=== PATIENT | female | born 1965 | race African-American/Black ===

== ENCOUNTER 2016-10-22 13:22 | Inpatient (IN) | payer OTHER ==
[~2016-10-22] VITALS: Ht 157.5 cm; Wt 50.0 kg
[2016-10-22] VITALS (11 sets, daily range): BP systolic 154–188; BP diastolic 56–91; PULSE 80–100; RESP 16–22; TEMP 98–98.9; O2SAT 98–100
[~2016-10-22 13:22] MED LIST: DIAZ5 PO; NOVO7030P2 SQ; PRIN10TA PO
[2016-10-22] MEDS ORDERED: ASPIRIN 325 MG TAB PO ONE (13:45)
[2016-10-22] MEDS ORDERED: SODIUM CHLORIDE 0.9% FLUSH 10 ML FLUSH IVF PRN (13:45)
--- NOTE | 2016-10-22 13:52 | PD ---
HPI Chief Complaint: Pain: Acute or Chronic Time Seen by Provider: 13:33 Travel History International Travel<30 days: No Contact w/Intl Traveler<30days: No Traveled to known affect area: No History of Present Illness HPI 51yo F with PMH of DM, HTN here with c/o midsternal chest pain since last night. States she has intermittent, sharp chest pain that is worst with deep breathing. Associated with nausea and nonbloody, nonbilious vomiting. Denies any fever, cough, sob, n/v, abdominal pain, focal weakness or numbness. Pt states she had similar chest pain before a few years ago but does not know what was done. Denies having any pet stylist. As per our record, pt had positive stress test 07/02/2009. Pt is noncompliant with medications for her diabetes. PFSH Past Medical History Cardiovascular Problems: Yes High Cholesterol: Yes Diabetes: Yes Patient Takes Glucophage: No Hypertension: Yes Thyroid Disease: Yes Tetanus Vaccination: < 5 Years ?: Not Past Surgical History Section: Yes Other Surgery: Yes (thyroid) Social History Alcohol Use: No Tobacco Use: No Substance Use: No Allergies-Medications (Allergen,Severity, Reaction): Coded Allergies: No Known Allergies (Verified , 10/22/16) Reported Meds & Prescriptions Reported Meds & Active Scripts Active No Active Prescriptions or Reported Medications Review of Systems Except as stated in HPI: all other systems reviewed are Neg Physical Exam Narrative GENERAL: 51yo F in moderate distress. SKIN: Focused skin assessment warm/dry. HEAD: Atraumatic. Normocephalic. CARDIOVASCULAR: Regular rate and rhythm. No murmur appreciated. RESPIRATORY: No accessory muscle use. Clear to auscultation. Breath sounds equal bilaterally. GASTROINTESTINAL: Abdomen soft, non-tender, nondistended. No rebound tenderness or guarding. MUSCULOSKELETAL: No obvious deformities. No clubbing. No cyanosis. No edema. NEUROLOGICAL: Awake and alert. No obvious cranial nerve deficits. Motor grossly within normal limits. Normal speech. Data Data Last Documented VS Vital Signs Date Time Temp Pulse Resp B/P (MAP) Pulse Ox O2 Delivery O2 Flow Rate FiO2 10/22/16 17:07 86 20 154/56 (88) 98 Room Air 10/22/16 13:45 98.9 Orders Orders Electrocardiogram (10/22/16 ) Basic Metabolic Panel (Bmp) (10/22/16 13:44) Complete Blood Count With Diff (10/22/16 13:44) Magnesium (Mg) (10/22/16 13:44) Prothrombin Time / Inr (Pt) (10/22/16 13:44) Act Partial Throm Time (Ptt) (10/22/16 13:44) Troponin I (10/22/16 13:44) Chest, Single Ap (10/22/16 13:44) Ecg Monitoring (10/22/16 13:44) Bilateral Bp Monitoring (10/22/16 13:44) Iv Access Insert/Monitor (10/22/16 13:44) Oximetry (10/22/16 13:44) Oxygen Administration (10/22/16 13:44) Aspirin (Aspirin) (10/22/16 13:45) Sodium Chloride 0.9% Flush (Ns Flush) (10/22/16 13:45) Ct Pulmonary Angiogram (10/22/16 13:44) Bhcg Screen Qualitative (10/22/16 13:47) Metoclopramide Inj (Reglan Inj) (10/22/16 14:00) Nitroglycerin Sl (Nitrostat Sl) (10/22/16 14:00) Iohexol 350 Inj (Omnipaque 350 Inj) (10/22/16 15:11) Morphine Inj (Morphine Inj) (10/22/16 19:15) Activity Bed Rest With Brp (10/22/16 19:01) Vital Signs (Adult) Q4H (10/22/16 19:) Cardiac Rhythm .As Directed (10/22/16 19:) Notify Dr: Other .PRN (10/22/16 19:) Notify DrRobert Parameters (10/22/16 19:) Resp Oxygen Nasal Cannula (10/22/16 ) Ckmb (Isoenzyme) Profile (10/22/16 19:) Ckmb (Isoenzyme) Profile (10/22/16 22:) Troponin I (10/22/16 19:) Troponin I (10/22/16 22:01) Electrocardiogram (10/22/16:) Electrocardiogram (10/22/16 22:01) ^ Obtain (10/22/16:) Sodium Chloride 0.9% Flush (Ns Flush) (10/22/16 19:15) Sodium Chloride 0.9% Flush (Ns Flush) (10/22/16 21:00) Wildlife Veterinarian / Telemetry CAMELIA.Q8H (10/22/16 19:01) Labs Laboratory Tests Test 10/22/16 13:50 White Blood Count 9.6 TH/MM3 Red Blood Count 4.25 MIL/MM3 Hemoglobin 7.9 GM/DL Hematocrit 27.4 % Mean Corpuscular Volume 64.4 FL Mean Corpuscular Hemoglobin 18.7 PG Mean Corpuscular Hemoglobin Concent 29.0 % Red Cell Distribution Width 19.0 % Platelet Count 348 TH/MM3 Mean Platelet Volume 10.0 FL Neutrophils (%) (Auto) 65.7 % Lymphocytes (%) (Auto) 26.7 % Monocytes (%) (Auto) 5.1 % Eosinophils (%) (Auto) 1.2 % Basophils (%) (Auto) 1.3 % Neutrophils # (Auto) 6.3 TH/MM3 Lymphocytes # (Auto) 2.6 TH/MM3 Monocytes # (Auto) 0.5 TH/MM3 Eosinophils # (Auto) 0.1 TH/MM3 Basophils # (Auto) 0.1 TH/MM3 CBC Comment DIFF FINAL Differential Comment Prothrombin Time 10.2 SEC Prothromb Time International Ratio 0.9 RATIO Activated Partial Thromboplast Time 23.5 SEC Blood Urea Nitrogen 26 MG/DL Creatinine 1.45 MG/DL Random Glucose 195 MG/DL Calcium Level 9.4 MG/DL Magnesium Level 2.2 MG/DL Sodium Level 139 MEQ/L Potassium Level 4.5 MEQ/L Chloride Level 105 MEQ/L Carbon Dioxide Level 24.9 MEQ/L Anion Gap 9 MEQ/L Estimat Glomerular Filtration Rate 46 ML/MIN Troponin I LESS THAN 0.02 NG/ML Beta HCG, Qualitative LESS THAN 1 MIU/ML MDM Medical Decision Making Medical Screen Exam Complete: Yes Emergency Medical Condition: Yes Interpretation(s) EKG: Sinus tachycardia at 111bpm. Normal axis. TWI V5, V6. Poor baseline. Differential Diagnosis ACS vs. pericarditis vs. PE vs. pneumonia Narrative Course 51yo F with HTN and DM with atypical midsternal chest pain. Chest pain is more pleuritic. CT angio unremarkable. CXR negative. Labs reviewed, no leukocytosis. H/H is low at 7.9/27.4 but may be secondary to menstrual bleed. Pt states she is currently at the end of her menstrual period. She also denies any blood in stool or black stool. Troponin negative. BUN/creatinine mildly elevated but last blood work was in 2008. Troponin negative. Glucose mildly elevated at 195. negative. Pt has risks factors even though chest pain is atypical. She had positive stress test in 2009 but never followed up or had any other studies. Pt given sublingual nitro and aspirin which didnt alleviate chest pain so morphine given. States morphine is the only thing that helps. Pt has no pet stylist. Will admit to chest pain center for serial EKG and cardiac enzymes. Diagnosis Primary Impression: Chest pain Admitting Information Admitting Physician Requests: Observation Scripts No Active Prescriptions or Reported Meds Skye Giron DO Oct 22, 2016 13:52
[2016-10-22] MEDS: NITROGLYCERIN 0.4 MG SL 25 TABS/BTL SL PRN ×3 (14:00→22:40)
[2016-10-22] MEDS ORDERED: METOCLOPRAMIDE INJ 10 MG in SODIUM CHLORIDE 0.9% INJ 50 ML IV ONE (14:00)
--- NOTE | 2016-10-22 14:07 | RADRPT ---
EXAM DATE/TIME: 10/22/2016 14:00 [facility] COMPARISON: No previous studies available for comparison. INDICATIONS : Chest pain. MEDICAL HISTORY : Hypertension. Hypercholesterolemia. Diabetes. SURGICAL HISTORY : None. ENCOUNTER: Initial ACUITY: 1 day PAIN SCORE: 10/10 LOCATION: Bilateral chest FINDINGS: A single view of the chest demonstrates the lungs to be symmetrically aerated without evidence of mas s, infiltrate or effusion. The cardiomediastinal contours are unremarkable. Osseous structures are intact. CONCLUSION: No acute disease. Phillip Richard MD on October 22, 2016 at 14:05 Board Certified Radiologist. This report was verified electronically.
[2016-10-22 14:11] LABS: AUTOMATED NEUTROPHIL # 6.3 TH/MM3 (1.8-7.7); BASOPHIL # 0.1 TH/MM3 (0-0.2); BASOPHIL % 1.3 % (0.0-2.0); EOSINOPHIL # 0.1 TH/MM3 (0-0.4); EOSINOPHIL % 1.2 % (0.0-4.0); HEMATOCRIT 27.4 % (35.0-46.0); HEMO FLAGS DIFF FINAL; LYMPH % 26.7 % (9.0-44.0); LYMPHOCYTE # 2.6 TH/MM3 (1.0-4.8); MEAN CELL VOLUME 64.4 FL (80.0-100.0); MEAN CORPUSCULAR HEMOGLOBIN 18.7 PG (27.0-34.0); MONO % 5.1 % (0.0-8.0); NEUT % 65.7 % (16.0-70.0); PLATELET COUNT 348 TH/MM3 (150-450); RED BLOOD COUNT 4.25 MIL/MM3 (4.00-5.30); WHITE BLOOD COUNT 9.6 TH/MM3 (4.0-11.0)
[2016-10-22 14:23] LABS: APTT (PATIENT) 23.5 SEC (24.3-30.1); INTERNATIONAL NORMALIZED RATIO 0.9 RATIO; PROTHROMBIN TIME - PATIENT 10.2 SEC (9.8-11.6)
[2016-10-22 14:28] LABS: ANION GAP 9 MEQ/L (5-15); BICARBONATE 24.9 MEQ/L (21.0-32.0); BLOOD UREA NITROGEN 26 MG/DL (7-18); CHLORIDE 105 MEQ/L (98-107); GLOMERULAR FILTRATION RATE 46 ML/MIN (>89); MAGNESIUM 2.2 MG/DL (1.5-2.5); POTASSIUM 4.5 MEQ/L (3.5-5.1); SODIUM (NA) 139 MEQ/L (136-145)
[2016-10-22] MEDS ORDERED: IOHEXOL 350 MG/ML 10 ML VIAL (for RAD DIAG) IV ONE (15:11)
--- NOTE | 2016-10-22 15:28 | RADRPT ---
EXAM DATE/TIME: 10/22/2016 15:00 [facility] COMPARISON: No previous studies available for comparison. INDICATIONS : Nausea, vomiting, chest pain today. IV CONTRAST: 60 cc Omnipaque 350 (iohexol) IV RADIATION DOSE: 23.18 CTDIvol (mGy) MEDICAL HISTORY : Cardiovascular disease. Hypertension. Diabetes mellitus type 1. SURGICAL HISTORY : None. ENCOUNTER: Initial ACUITY: 1 day PAIN SCALE: 5/10 LOCATION: chest TECHNIQUE: Volumetric scanning of the chest was performed using a pulmonary embolism protocol MIP images were re constructed. Using automated exposure control and adjustment of the mA and/or kV according to patien t size, radiation dose was kept as low as reasonably achievable to obtain optimal diagnostic quality images. DICOM format image data is available electronically for review and comparison. Follow-up recommendations for detected pulmonary nodules are based at a minimum on nodule size and pa tient risk factors according to Fleischner Society Guidelines. FINDINGS: The lungs are clear without infiltrate, nodule, or mass. There is no pleural effusion. No appreciab le pathological adenopathy is seen within the mediastinum. There is no evidence for PE for technique. CONCLUSION: Unremarkable study. James Tbaor MD on October 22, 2016 at 15:24 Board Certified Radiologist. This report was verified electronically.
[2016-10-22] MEDS ORDERED: MORPHINE SULFATE 4 MG/ML INJ IV PUSH ONE (19:15)
[2016-10-22] MEDS ORDERED: SODIUM CHLORIDE 0.9% FLUSH 10 ML FLUSH IV FLUSH PRN (19:15)
[2016-10-22] MEDS: SODIUM CHLORIDE 0.9% FLUSH 10 ML FLUSH IV FLUSH SCH (20:16)
[2016-10-22 20:24] LABS: CREATINE KINASE 97 U/L (26-192)
[2016-10-22] MEDS ORDERED: LISINOPRIL 10 MG TAB PO ONE (23:45)
[2016-10-23] VITALS (11 sets, daily range): BP systolic 103–185; BP diastolic 61–91; PULSE 60–99; RESP 17–20; TEMP 97.9–99; O2SAT 95–99
[2016-10-23 00:14] LABS: CREATINE KINASE 87 U/L (26-192)
[2016-10-23] MEDS ORDERED: ACETAMINOPHEN 500 MG CPLT PO PRN (00:15)
[2016-10-23] MEDS ORDERED: DEXTROSE 50% IN WATER 50 ML VIAL(D50) IV PUSH PRN (00:15)
[2016-10-23] MEDS ORDERED: TEMAZEPAM 15 MG CAP PO PRN (00:15)
[2016-10-23] MEDS ORDERED: ACETAMINOPHEN/HYDROcodone 325 MG/5 MG TAB PO PRN (00:15)
[2016-10-23] MEDS ORDERED: GLUCAGON 1 MG/ML VIAL OTHER PRN ×2 (00:15→15:30)
[2016-10-23] MEDS: LOW DOSE INSULIN NOVOLOG SUPPLEMENTAL SCALE SQ SCH ×2 (06:24→11:00)
[2016-10-23] MEDS: LISINOPRIL 10 MG TAB PO SCH (08:02)
[2016-10-23] MEDS: SODIUM CHLORIDE 0.9% FLUSH 10 ML FLUSH IV FLUSH SCH ×2 (09:00→20:18)
[2016-10-23] MEDS ORDERED: ONDANSETRON HCL 4 MG/2 ML VIAL ONE (11:01)
[2016-10-23 11:06] LABS: AUTOMATED NEUTROPHIL # 10.4 TH/MM3 (1.8-7.7); BASOPHIL # 0.1 TH/MM3 (0-0.2); BASOPHIL % 0.5 % (0.0-2.0); HEMATOCRIT 27.4 % (35.0-46.0); HEMO FLAGS DIFF FINAL; LYMPH % 8.5 % (9.0-44.0); MEAN CORPUSCULAR HEMOGLOBIN 18.6 PG (27.0-34.0); MONO % 3.6 % (0.0-8.0); NEUT % 87.4 % (16.0-70.0); PLATELET COUNT 313 TH/MM3 (150-450); RED BLOOD COUNT 4.28 MIL/MM3 (4.00-5.30); RED CELL DISTRIBUTION WIDTH 18.9 % (11.6-17.2); WHITE BLOOD COUNT 11.9 TH/MM3 (4.0-11.0)
[2016-10-23 11:22] LABS: ALT (GPT) 18 U/L (10-53); ANION GAP 10 MEQ/L (5-15); AST (GOT) 16 U/L (15-37); BICARBONATE 26.1 MEQ/L (21.0-32.0); BLOOD UREA NITROGEN 21 MG/DL (7-18); CHLORIDE 102 MEQ/L (98-107); GLOMERULAR FILTRATION RATE 50 ML/MIN (>89); POTASSIUM 3.5 MEQ/L (3.5-5.1); SODIUM (NA) 138 MEQ/L (136-145)
[2016-10-23 11:30] LABS: ALKALINE PHOSPHATASE 75 U/L (45-117); TOTAL BILIRUBIN ADULT 0.3 MG/DL (0.2-1.0)
[2016-10-23] MEDS ORDERED: PROMETHAZINE INJ 25 MG/ML VIAL IM ONE (12:00)
[2016-10-23] MEDS ORDERED: SODIUM CHLOR 0.9% 1000 ML INJ 1,000 ML IV ONE (12:00)
[2016-10-23] MEDS ORDERED: PHENobarbital ELIX 20 MG/5 ML CUP ONE (12:47)
--- NOTE | 2016-10-23 13:30 | RADRPT ---
EXAM DATE/TIME: 10/23/2016 10:56 [facility] COMPARISON: No previous studies available for comparison. INDICATIONS : Right upper quadrant pain. MEDICAL HISTORY : Hypercholesterolemia. Hypertension. Thyroid disease. Diabetes. Anemia. SURGICAL HISTORY : section. Thyroid surgery, unspecified. ENCOUNTER: Initial ACUITY: 2 days PAIN SCORE: 9/10 LOCATION: Right upper quadrant MEASUREMENTS: LIVER: 14.3 cm length COMMON DUCT: 2 mm RIGHT KIDNEY: 8.8 x 4.5 x 3.8 cm FINDINGS: LIVER: Normal echotexture without focal lesion or ductal dilatation. Hepatopedal flow. COMMON DUCT: No intraluminal mass or stone visualized. GALLBLADDER: Contains no stones, demonstrates no wall thickening or pericholecystic fluid. PANCREAS: The visualized portions are within normal limits. RIGHT KIDNEY: No evidence of hydronephrosis, stone, or mass. CONCLUSION: 1. Unremarkable right upper quadrant sonogram. 2. No evidence for cholelithiasis. Phillip Richard MD on October 23, 2016 at 11:29 Board Certified Radiologist. This report was verified electronically.
[2016-10-23 14:21] LABS: BLOOD, URINE SMALL (NEG); COMMENT (UR) CULT NOT INDICATED; CULTURE IF INDICATED CULT NOT INDICATED; GLUCOSE,URINE 70 mg/dL (NEG); KETONE, URINE 10 mg/dL (NEG); MUCUS URINE FEW /lpf (OCC); NITRITE,URINE NEG (NEG); SQUAMOUS EPITHELIAL CELL URINE <1 /hpf (0-5); URINE COLOR YELLOW (YELLW/STRAW)
[2016-10-23] MEDS ORDERED: PROMETHAZINE INJ 25 MG/ML VIAL IM PRN (15:00)
--- NOTE | 2016-10-23 15:14 | HHI.HP ---
[facility] Primary [facility] Physician No Primary Care Physician Admission Diagnosis Chest pain Diagnoses: Chief Complaint: nausea and pain Travel History International Travel<30 Days: No Contact w/Intl Traveler <30 Da: No Traveled to Known Affected Are: No History of Present Illness 51-year-old black female being admitted for obs from chest pain center for nausea and epigastric/subcostal pain. Patient was in her usual state of health until 2 days ago when she began experiencing nausea and worsening of her chronic subcostal pain. Patient tolerated this for the next few days until she threw up earlier at work yesterday and decided to come in. She reports pain in her lower chest that is worse with deep breathing. States that this pain has been chronic (for years) and that it routinely goes to a level of "10" but decided to come in because it was present with the nausea today. Patient denies taking any medications for this pain or nausea during this episode, states that she is a diabetic and has not taken any medications for a long time , has not seen a doctor since she moved to the area, used to live in the [facility] , reports not seeing any medical provider for her chronic low chest pain due to financial issues. Denies any lightheadedness or syncopal episodes. Denies any diarrhea or worsening of the pain with meals. States that she has normal bowel movements on a daily basis and that this has not changed recently. Does report that she does marijuana about 3 times a week, and smoked some marijuana the first day of her nausea 2 days ago to try to treat it - but to no avail. Review of Systems Except as stated in HPI: all other systems reviewed are Neg Past Family Social History Past Medical History Diabetes Past Surgical History C-sections Allergies: Coded Allergies: No Known Allergies (Verified , 10/22/16) Active Ordered Medications Reported Meds & Active Scripts Active No Active Prescriptions or Reported Medications Family History Hypertension Social History Lives with daughter and friend, smokes cigarettes and marijuana, works at [employer] Physical Exam Vital Signs Vital Signs Date Time Temp Pulse Resp B/P (MAP) Pulse Ox O2 Delivery O2 Flow Rate FiO2 10/23/16 14:24 97.9 68 18 112/62 (79) 96 10/23/16 08:00 96 10/23/16 07:52 98 21 10/23/16 07:49 98.2 86 18 152/91 (111) 97 10/23/16 04:00 97.9 89 17 103/61 (75) 99 10/22/16 23:48 98.2 80 16 170/77 (108) 99 10/22/16 23:00 80 10/22/16 21:05 98.0 81 16 182/84 (116) 100 10/22/16 21:00 100 21 10/22/16 19:58 98.1 91 16 175/83 (113) 98 Room Air 10/22/16 17:07 86 20 154/56 (88) 98 Room Air Physical Exam VS: Reviewed, afebrile GENERAL: No acute distress when lying in bed, becomes very distressed with deep palpation over epigastrium and actually vomits almost instantaneously SKIN: Warm and dry. EYES: No scleral icterus. No injection or drainage. ENT: No nasal bleeding or discharge. Mucous membranes pink and moist. CARDIOVASCULAR: Regular rate and rhythm. no murmurs RESPIRATORY: No accessory muscle use. Clear to auscultation. Breath sounds equal bilaterally. GASTROINTESTINAL: Abdomen soft, moderate tenderness to palpation in epigastrium and left upper quadrant MUSCULOSKELETAL: Moderate tenderness to palpation over lower aspect of sternum and left subcostal region. Extremities without clubbing, cyanosis, or edema. No obvious deformities. grossly intact ROM with 5/5 strength in upper and lower extremities proximally NEUROLOGICAL: Awake and alert. No obvious cranial nerve deficits. No facial droop nor slurred speech noted. PSYCHIATRIC: Appropriate mood and affect; insight and judgment normal. Laboratory Laboratory Tests Test 10/22/16 19:45 10/22/16 23:00 10/23/16 10:40 10/23/16 13:48 Total Creatine Kinase 97 87 Troponin I LESS THAN 0.02 LESS THAN 0.02 White Blood Count 11.9 Red Blood Count 4.28 Hemoglobin 8.0 Hematocrit 27.4 Mean Corpuscular Volume 64.0 Mean Corpuscular Hemoglobin 18.6 Mean Corpuscular Hemoglobin Concent 29.0 Red Cell Distribution Width 18.9 Platelet Count 313 Mean Platelet Volume 10.0 Neutrophils (%) (Auto) 87.4 Lymphocytes (%) (Auto) 8.5 Monocytes (%) (Auto) 3.6 Eosinophils (%) (Auto) 0.0 Basophils (%) (Auto) 0.5 Neutrophils # (Auto) 10.4 Lymphocytes # (Auto) 1.0 Monocytes # (Auto) 0.4 Eosinophils # (Auto) 0.0 Basophils # (Auto) 0.1 CBC Comment DIFF FINAL Differential Comment Blood Urea Nitrogen 21 Creatinine 1.37 Random Glucose 200 Total Protein 8.7 Albumin 4.2 Calcium Level 9.2 Alkaline Phosphatase 75 Aspartate Amino Transf (AST/SGOT) 16 Alanine Aminotransferase (ALT/SGPT) 18 Total Bilirubin 0.3 Sodium Level 138 Potassium Level 3.5 Chloride Level 102 Carbon Dioxide Level 26.1 Anion Gap 10 Estimat Glomerular Filtration Rate 50 Lipase 265 Urine Color YELLOW Urine Turbidity CLEAR Urine pH 6.0 Urine Specific [place] 1.026 Urine Protein 300 Urine Glucose (UA) 70 Urine Ketones 10 Urine Occult Blood SMALL Urine Nitrite NEG Urine Bilirubin NEG Urine Urobilinogen LESS THAN 2.0 Urine Leukocyte Esterase NEG Urine RBC 1 Urine WBC 1 Urine Squamous Epithelial Cells <1 Urine Mucus FEW Microscopic Urinalysis Comment CULT NOT INDICATED Urine Opiates Screen POS Urine Barbiturates Screen NEG Urine Amphetamines Screen NEG Urine Benzodiazepines Screen NEG Urine Cocaine Screen NEG Urine Cannabinoids Screen POS Result Diagram: 10/23/16 1040 10/23/16 1040 Imaging Last Impressions Chest X-Ray 10/22/16 1344 Signed Impressions: Service Date/Time: Saturday, October 22, 2016 14:00 - CONCLUSION: No acute disease. Phillip Richard MD CT Angiography 10/22/16 1344 Signed Impressions: Service Date/Time: Saturday, October 22, 2016 15:00 - CONCLUSION: Unremarkable study. James Tabor MD Caprini VTE Risk Assessment Caprini VTE Risk Assessment: No/Low Risk (score <= 1) Caprini Risk Assessment Model Point Value = 1 Point Value = 2 Point Value = 3 Point Value = 5 Age 41-60 Minor surgery BMI > 25 kg/m2 Swollen legs Varicose veins or History of unexplained or recurrent spontaneous Oral contraceptives or hormone replacement Sepsis (< 1 month) Serious lung disease, including pneumonia (< 1 month) Abnormal pulmonary function Acute myocardial infarction Congestive heart failure (< 1 month) History of inflammatory bowel disease Medical patient at bed rest Age 61-74 Arthroscopic surgery Major open surgery (> 45 min) Laparoscopic surgery (> 45 min) Malignancy Confined to bed (> 72 hours) Immobilizing plaster cast Central venous access Age >= 75 History of VTE Family history of VTE Factor V Leiden Prothrombin [id number] Lupus anticoagulant Anticardiolipin antibodies Elevated serum homocysteine Heparin-induced thrombocytopenia Other congenital or acquired thrombophilia Stroke (< 1 month) Elective arthroplasty Hip, pelvis, or leg fracture Acute spinal cord injury (< 1 month) Prophylaxis Regimen Total Risk Factor Score Risk Level Prophylaxis Regimen 0-1 Low Early ambulation 2 Moderate Order ONE of the following: *Sequential Compression Device (SCD) *Heparin 5000 units SQ BID 3-4 Higher Order ONE of the following medications: *Heparin 5000 units SQ TID *Enoxaparin/Lovenox 40 mg SQ daily (WT < 150 kg, CrCl > 30 mL/min) *Enoxaparin/Lovenox 30 mg SQ daily (WT < 150 kg, CrCl > 10-29 mL/min) *Enoxaparin/Lovenox 30 mg SQ BID (WT < 150 kg, CrCl > 30 mL/min) AND/OR *Sequential Compression Device (SCD) 5 or more Highest Order ONE of the following medications: *Heparin 5000 units SQ TID (Preferred with Epidurals) *Enoxaparin/Lovenox 40 mg SQ daily (WT < 150 kg, CrCl > 30 mL/min) *Enoxaparin/Lovenox 30 mg SQ daily (WT < 150 kg, CrCl > 10-29 mL/min) *Enoxaparin/Lovenox 30 mg SQ BID (WT < 150 kg, CrCl > 30 mL/min) AND *Sequential Compression Device (SCD) Assessment and Plan Assessment and Plan 41-year-old black female being admitted for intractable nausea and vomiting. Clinically stable upon admission. 1) nausea vomiting - suspect that the patient's marijuana is playing a substantial role in this (given the chronicity of her complaints), will treat with IV and IM antiemetics, IV fluids, clear liquids as tolerated. Lipase, UA and CMP are unremarkable. gallbladder US pending but i suspect it will be unremarkable. 2) diabetes - A1c is 7.7, will start LDSS 3) renal insufficiency - suspect that this is an acute on chronic component ( and I argue for chronic due to likely uncontrolled diabetes) Josué Gonzalez MD Oct 23, 2016 15:14
[2016-10-23] MEDS ORDERED: DEXTROSE 50% IN WATER 50 ML VIAL(D50) IV PRN (15:30)
--- NOTE | 2016-10-23 16:28 | EKG ---
Date Performed: 10/22/2016 Time Performed: 23:05:41 PTAGE: 51 years EKG: Sinus rhythm NONSPECIFIC ST & T-WAVE ABNORMALITY BORDERLINE ECG PREVIOUS TRACING : 10/22/2016 19.27 Since previous tracing, no significant change noted DOCTOR: Yunior William Interpretating Date/Time 10/23/2016 16:27:27
--- NOTE | 2016-10-23 16:31 | EKG ---
Date Performed: 10/22/2016 Time Performed: 19:27:26 PTAGE: 51 years EKG: Sinus rhythm ST DEVIATION AND MODERATE T-WAVE ABNORMALITY ABNORMAL ECG PREVIOUS TRACING : 10/22/2016 13.35 Since previous tracing, no significant change noted DOCTOR: Yunior William Interpretating Date/Time 10/23/2016 16:30:19
--- NOTE | 2016-10-23 16:34 | EKG ---
Date Performed: 10/22/2016 Time Performed: 13:35:43 PTAGE: 51 years EKG: SINUS TACHYCARDIA POSSIBLE RIGHT ATRIAL ENLARGEMENT NONSPECIFIC ST & T-WAVE ABNORMALITY ABN ORMAL ECG INTERPRETATION BASED ON A DEFAULT AGE OF 40 YEARS PREVIOUS TRACING : 08/11/2008 16.35 Since previous tracing, no significant change noted DOCTOR: Yunior William Interpretating Date/Time 10/23/2016 16:34:38
[2016-10-23] MEDS: ONDANSETRON ODT 4 MG TAB PO PRN ×2 (18:03→18:09)
[2016-10-23] MEDS: INSULIN ASPART SUPPLEMENTAL SCALE SQ SCH ×2 (18:07→20:17)
[2016-10-23] MEDS ORDERED: DIATRIZOATE MEGLUM/DIATRIZOATE SOD 9 ML CUP PO ONE (18:15)
[2016-10-23] MEDS: SODIUM CHLOR 0.9% 1000 ML INJ 1,000 ML IV SCH (18:16)
[2016-10-23 19:24] LABS: BETA HCG QUANT LESS THAN 1 MIU/ML (0-5)
[2016-10-23] MEDS ORDERED: cloNIDine HCL 0.1 MG TAB PO PRN (20:30)
[2016-10-23] MEDS: NITROGLYCERIN 0.4 MG SL 25 TABS/BTL SL PRN ×3 (20:36→21:16)
[2016-10-24] MEDS ORDERED: IOHEXOL 350 MG/ML 10 ML VIAL (for RAD DIAG) IVCONTRAST ONE (03:10)
--- NOTE | 2016-10-24 03:42 | RADRPT ---
EXAM DATE/TIME: 10/24/2016 03:08 [facility] COMPARISON: No previous studies available for comparison. INDICATIONS : Epigastric pain with nausea. IV CONTRAST: 95 cc Omnipaque 350 (iohexol) IV ORAL CONTRAST: Prescribed oral contrast ingested. RADIATION DOSE: 4.51 CTDIvol (mGy) MEDICAL HISTORY : Cardiovascular disease. Hypertension. Diabetes mellitus type 2. SURGICAL HISTORY : Thyroid surgery. ENCOUNTER: Initial ACUITY: 2 days PAIN SCALE: 3/10 LOCATION: upper quadrant abdomen TECHNIQUE: Volumetric scanning of the abdomen and pelvis was performed. Using automated exposure control and ad justment of the mA and/or kV according to patient size, radiation dose was kept as low as reasonably achievable to obtain optimal diagnostic quality images. DICOM format image data is available electro nically for review and comparison. FINDINGS: Lung bases are clear. Mild fatty liver. Spleen, adrenals, kidneys and pancreas unremarkable. There is some contrast in the gallbladder from previous contrast injection on October 22. No free fluid. No bowel obstruction. No adenopathy. 1.9 cm presumed fibroid in the uterus. No other p elvic masses. CONCLUSION: 1. No acute findings within the abdomen and pelvis. Uterine fibroid. Contrast in gallbladder. Mild fa tty liver. Bonifacio Sheppard MD on October 24, 2016 at 3:36 Board Certified Radiologist. This report was verified electronically.
[2016-10-24 04:10] VITALS: BP 143/65; PULSE 79; RESP 18; TEMP 98.1; O2SAT 100
[2016-10-24] MEDS ORDERED: PANTOPRAZOLE SOD 20 MG DELAYED RELEASE TAB PO ONE (05:15)
[2016-10-24] MEDS: SODIUM CHLOR 0.9% 1000 ML INJ 1,000 ML IV SCH ×2 (05:18→17:21)
[2016-10-24 05:37] LABS: AUTOMATED NEUTROPHIL # 9.5 TH/MM3 (1.8-7.7); BASOPHIL # 0.1 TH/MM3 (0-0.2); BASOPHIL % 0.6 % (0.0-2.0); HEMATOCRIT 28.6 % (35.0-46.0); HEMO FLAGS DIFF FINAL; LYMPH % 14.5 % (9.0-44.0); LYMPHOCYTE # 1.8 TH/MM3 (1.0-4.8); MEAN CELL VOLUME 64.1 FL (80.0-100.0); MEAN CORPUSCULAR HEMOGLOBIN 18.4 PG (27.0-34.0); MONO % 6.3 % (0.0-8.0); NEUT % 78.6 % (16.0-70.0); PLATELET COUNT 339 TH/MM3 (150-450); RED BLOOD COUNT 4.46 MIL/MM3 (4.00-5.30); RED CELL DISTRIBUTION WIDTH 18.7 % (11.6-17.2); WHITE BLOOD COUNT 12.1 TH/MM3 (4.0-11.0)
[2016-10-24 05:38] LABS: MEAN CORPUSCULAR HGB CONC 28.8 % (32.0-36.0)
[2016-10-24 06:00] LABS: BICARBONATE 26.6 MEQ/L (21.0-32.0); POTASSIUM 3.9 MEQ/L (3.5-5.1)
[2016-10-24] MEDS: INSULIN ASPART SUPPLEMENTAL SCALE SQ SCH ×3 (06:26→16:00)
[2016-10-24 07:14] VITALS: BP 177/87; PULSE 95; RESP 19; TEMP 98.9; O2SAT 99
[2016-10-24 07:39] VITALS: PULSE 108
[2016-10-24] MEDS: LISINOPRIL 10 MG TAB PO SCH (08:43)
[2016-10-24] MEDS: SODIUM CHLORIDE 0.9% FLUSH 10 ML FLUSH IV FLUSH SCH (08:44)
[2016-10-24] MEDS ORDERED: PANTOPRAZOLE SOD 20 MG DELAYED RELEASE TAB PO SCH (09:00)
[2016-10-24] MEDS: ONDANSETRON ODT 4 MG TAB PO PRN (11:10)
[2016-10-24] MEDS ORDERED: PANTOPRAZOLE SODIUM 40 MG VIAL IV PUSH ONE (11:30)
[2016-10-24] MEDS ORDERED: ALUMINUM/MAGNESIUM/SIMETH 30 ML CUP PO ONE (11:30)
[2016-10-24] MEDS ORDERED: CALCIUM CARBONATE 500 MG CHEWABLE TAB CHEW PRN (11:30)
[2016-10-24 11:35] VITALS: BP 181/88; PULSE 104; RESP 19; TEMP 99.8; O2SAT 100
[2016-10-24 15:46] VITALS: BP 163/83; PULSE 98; RESP 18; TEMP 98.1; O2SAT 100
[2016-10-24] MEDS ORDERED: ONDA1TAB17 PO (16:42)
[2016-10-24] MEDS ORDERED: PROM12.54 PO (16:42)
[2016-10-24] MEDS ORDERED: PRIL20TA2 PO (16:44)
--- NOTE | 2016-10-24 16:44 | HHI.DCPOC ---
Discharge Care Plan Additional Problems cyclical vomiting secondary to marijuana use and heartburn Goals to Promote Your Health * To prevent worsening of your condition and complications * To maintain your health at the optimal level Stop using marijuana, take meds as prescribed Directions to Meet Your Goals Take your medications as prescribed Follow your dietary instruction Follow activity as directed Keep your appointments as scheduled Take your immunizations and boosters as scheduled If your symptoms worsen call your PCP, if no PCP go to Urgent Care Center or Emergency Room Smoking is Dangerous to Your Health. Avoid second hand smoke Call the 24-hour hour crisis hotline for domestic abuse at Josué Gonzalez MD Oct 24, 2016 16:44
[2016-10-24] MEDS ORDERED: METF500T PO (16:45)
--- NOTE | 2016-10-24 19:44 | HHI.DS ---
Discharge Summary Admission Date Oct 22, 2016 at 19:04 Discharge Date: Oct 24, 2016 Admitting Diagnosis intractable N/V (1) Cyclical vomiting syndrome ICD Code: G43.A0 - Cyclical vomiting, not intractable Diagnosis: Principal Status: Acute (2) Acid reflux disease ICD Code: K21.9 - Gastro-esophageal reflux disease without esophagitis Diagnosis: Secondary Status: Acute Procedures None Brief History - From Admission 51-year-old black female being admitted for obs from chest pain center for nausea and epigastric/subcostal pain. Patient was in her usual state of health until 2 days ago when she began experiencing nausea and worsening of her chronic subcostal pain. Patient tolerated this for the next few days until she threw up earlier at work yesterday and decided to come in. She reports pain in her lower chest that is worse with deep breathing. States that this pain has been chronic (for years) and that it routinely goes to a level of "10" but decided to come in because it was present with the nausea today. Patient denies taking any medications for this pain or nausea during this episode, states that she is a diabetic and has not taken any medications for a long time , has not seen a doctor since she moved to the area, used to live in the [facility] , reports not seeing any medical provider for her chronic low chest pain due to financial issues. Denies any lightheadedness or syncopal episodes. Denies any diarrhea or worsening of the pain with meals. States that she has normal bowel movements on a daily basis and that this has not changed recently. Does report that she does marijuana about 3 times a week, and smoked some marijuana the first day of her nausea 2 days ago to try to treat it - but to no avail. CBC/BMP: 10/24/16 0454 10/24/16 0454 Significant Findings Laboratory Tests Test 10/22/16 13:50 10/22/16 19:45 10/22/16 23:00 10/23/16 10:40 Hemoglobin 7.9 GM/DL (11.6-15.3) 8.0 GM/DL (11.6-15.3) Hematocrit 27.4 % (35.0-46.0) 27.4 % (35.0-46.0) Mean Corpuscular Volume 64.4 FL (80.0-100.0) 64.0 FL (80.0-100.0) Mean Corpuscular Hemoglobin 18.7 PG (27.0-34.0) 18.6 PG (27.0-34.0) Mean Corpuscular Hemoglobin Concent 29.0 % (32.0-36.0) 29.0 % (32.0-36.0) Red Cell Distribution Width 19.0 % (11.6-17.2) 18.9 % (11.6-17.2) Activated Partial Thromboplast Time 23.5 SEC (24.3-30.1) Blood Urea Nitrogen 26 MG/DL (7-18) 21 MG/DL (7-18) Creatinine 1.45 MG/DL (0.50-1.00) 1.37 MG/DL (0.50-1.00) Random Glucose 195 MG/DL (74-106) 200 MG/DL (74-106) Estimat Glomerular Filtration Rate 46 ML/MIN (>89) 50 ML/MIN (>89) Troponin I LESS THAN 0.02 NG/ML LESS THAN 0.02 NG/ML LESS THAN 0.02 NG/ML White Blood Count 11.9 TH/MM3 (4.0-11.0) Neutrophils (%) (Auto) 87.4 % (16.0-70.0) Lymphocytes (%) (Auto) 8.5 % (9.0-44.0) Neutrophils # (Auto) 10.4 TH/MM3 (1.8-7.7) Total Protein 8.7 GM/DL (6.4-8.2) Test 10/23/16 13:48 10/24/16 04:54 Urine Protein 300 mg/dL (NEG-TRACE) Urine Glucose (UA) 70 mg/dL (NEG) Urine Ketones 10 mg/dL (NEG) Urine Occult Blood SMALL (NEG) Urine Mucus FEW /lpf (OCC) Urine Opiates Screen POS (NEG) Urine Cannabinoids Screen POS (NEG) White Blood Count 12.1 TH/MM3 (4.0-11.0) Hemoglobin 8.2 GM/DL (11.6-15.3) Hematocrit 28.6 % (35.0-46.0) Mean Corpuscular Volume 64.1 FL (80.0-100.0) Mean Corpuscular Hemoglobin 18.4 PG (27.0-34.0) Mean Corpuscular Hemoglobin Concent 28.8 % (32.0-36.0) Red Cell Distribution Width 18.7 % (11.6-17.2) Neutrophils (%) (Auto) 78.6 % (16.0-70.0) Neutrophils # (Auto) 9.5 TH/MM3 (1.8-7.7) Creatinine 1.17 MG/DL (0.50-1.00) Random Glucose 203 MG/DL (74-106) Sodium Level 135 MEQ/L (136-145) Estimat Glomerular Filtration Rate 59 ML/MIN (>89) Imaging Last Impressions Gall Bladder Ultrasound 10/23/16 0000 Signed Impressions: Service Date/Time: Sunday, October 23, 2016 10:56 - CONCLUSION: 1. Unremarkable right upper quadrant sonogram. 2. No evidence for cholelithiasis. Phillip Richard MD Chest X-Ray 10/22/16 1344 Signed Impressions: Service Date/Time: Saturday, October 22, 2016 14:00 - CONCLUSION: No acute disease. Phillip Richard MD CT Angiography 10/22/16 1344 Signed Impressions: Service Date/Time: Saturday, October 22, 2016 15:00 - CONCLUSION: Unremarkable study. James Tabor MD PE at Discharge GENERAL: Resting comfortably in bed CARDIOVASCULAR: Regular rate and rhythm without murmurs, gallops, or rubs. RESPIRATORY: Breath sounds equal and clear bilaterally. Unlabored breathing GASTROINTESTINAL: Abdomen soft, non-tender, nondistended. Upon auscultation there is a pulsatile bruit MUSCULOSKELETAL: No cyanosis, or edema. Hospital Course Patient was initially admitted to chest pain center, it was later clarified that she did not present with true chest pain but rather musculoskeletal pain and abdominal pain along with nausea and vomiting. Patient underwent a CT abdomen which was unremarkable, ultrasound abdomen was also unremarkable. Had a discussion with radiologist who did not note any aortic aneurysms given the patient's abdominal bruit is heard on examination. Patient was treated successfully with antiemetics, IV fluids, antireflux medications and eventually tolerated by mouth intake well. She was able to stand and ambulate without any further nausea. Patient was extensively counseled to avoid marijuana usage as this was very well a likely culprit in her presentation. She was also counseled to start taking medications for heartburn. Patient remained afebrile throughout her entire stay. Patient has met maximum benefit from hospitalization and is clinically stable for discharge. Pt Condition on Discharge: Fair Discharge Disposition: Discharge Home Discharge Time: > 30 minutes Discharge Instructions DIET: Follow Instructions for: Low Fat Diet Activities you can perform: Regular-No Restrictions Follow up Referrals: PCP Follow-up - 1 Week New Medications: Metformin (Metformin) 500 Mg Tab 500 MG PO BIDPC for Blood Sugar Management, #60 TAB 0 Refills With meals Omeprazole Magnesium (Prilosec) 20 Mg Tab 20 TAB-CAP PO DAILY for Heartburn Management, #30 CAP Ondansetron (Ondansetron) 8 Mg Tab 8 MG PO TID for Nausea/Vomiting, #10 TAB 1 Refill Promethazine (Promethazine) 12.5 Mg Tab 12.5 MG PO Q6H PRN for NAUSEA OR VOMITING, #10 TAB 0 Refills Josué Gonzalez MD Oct 24, 2016 19:44
== END 2016-10-24 22:02 | disposition home or self-care (01) | DRG 103 ==
LOC: NEPE 13:22 → NEDA 19:04 → NEPGCP 21:03
PROVIDERS: ADMIT Hospitalist; ATTEND Hospitalist
DX: G43.A0 Cyclical vomiting, in migraine, not intractable (principal); I10 Essential (primary) hypertension; R07.9 Chest pain, unspecified; E11.9 Type 2 diabetes mellitus without complications; F17.210 Nicotine dependence, cigarettes, uncomplicated; K21.9 Gastro-esophageal reflux disease without esophagitis; E78.00 Pure hypercholesterolemia, unspecified; F12.90 Cannabis use, unspecified, uncomplicated; E07.9 Disorder of thyroid, unspecified; Z91.14 Patient's other noncompliance with medication regimen
CPT/HCPCS: 71010; 71275; 74177; 76705; 80048; 80053; 80307; 81001; 82550; 82948; 83690; 83735; 84484; 84702; 84703; 85025; 85610; 85730; 93005; 96365; 96366; C9113; J1815; J2270; J2405; J2550; J2765; J7030; Q9963; Q9967

== ENCOUNTER 2017-05-11 11:58 | Emergency (ER) | payer SELFPAY ==
[~2017-05-11 11:58] MED LIST changes: -DIAZ5 PO; +METF500T PO; -NOVO7030P2 SQ; +ONDA8TAB7 PO; +PRIL20TA2 PO; -PRIN10TA PO; +PROM12.54 PO
[2017-05-11 12:40] VITALS: BP 167/96; PULSE 105; RESP 16; TEMP 98.5; O2SAT 100
[2017-05-11 13:19] LABS: AUTOMATED NEUTROPHIL # 2.8 TH/MM3 (1.8-7.7); BASOPHIL % 0.4 % (0.0-2.0); HEMATOCRIT 33.3 % (35.0-46.0); HEMOGLOBIN 10.5 GM/DL (11.6-15.3); LYMPH % 30.3 % (9.0-44.0); LYMPHOCYTE # 1.4 TH/MM3 (1.0-4.8); MEAN CELL VOLUME 65.4 FL (80.0-100.0); MEAN CORPUSCULAR HEMOGLOBIN 20.6 PG (27.0-34.0); MEAN CORPUSCULAR HGB CONC 31.5 % (32.0-36.0); MEAN PLATELET VOLUME 9.9 FL (7.0-11.0); MONO % 10.3 % (0.0-8.0); MONOCYTE # 0.5 TH/MM3 (0-0.9); PLATELET COUNT 195 TH/MM3 (150-450); RED BLOOD COUNT 5.09 MIL/MM3 (4.00-5.30); RED CELL DISTRIBUTION WIDTH 20.5 % (11.6-17.2); WHITE BLOOD COUNT 4.7 TH/MM3 (4.0-11.0)
[2017-05-11 13:45] LABS: ALBUMIN 3.8 GM/DL (3.4-5.0); AST (GOT) 26 U/L (15-37); BICARBONATE 28.3 MEQ/L (21.0-32.0); BLOOD UREA NITROGEN 17 MG/DL (7-18); CALCIUM 9.1 MG/DL (8.5-10.1); CHLORIDE 97 MEQ/L (98-107); CREATININE 1.37 MG/DL (0.50-1.00); GLOMERULAR FILTRATION RATE 50 ML/MIN (>89); GLUCOSE,RANDOM 237 MG/DL (74-106); SODIUM (NA) 136 MEQ/L (136-145)
[2017-05-11 13:48] LABS: ALKALINE PHOSPHATASE 87 U/L (45-117); ALT (GPT) 27 U/L (10-53); TOTAL BILIRUBIN ADULT 0.4 MG/DL (0.2-1.0)
[2017-05-11 14:35] VITALS: RESP 18; O2SAT 100
--- NOTE | 2017-05-11 14:36 | PD ---
HPI Chief Complaint: GI Complaint Time Seen by Provider: 14:36 Travel History International Travel<30 days: No Contact w/Intl Traveler<30days: No Traveled to known affect area: No History of Present Illness HPI 51-year-old F [place] female presents with multiple complaints including chest congestion, cough, chest pain, nausea, vomiting, and diarrhea. Patient states she has been ill for about a week. She states she has felt feverish but denies specific temperature. Patient states she was seen at [facility] last evening, and diagnosed with bronchitis. She was sent home on azithromycin, Phenergan, and guaifenesin without improvement. Patient states she has a productive cough of yellow "chunky sputum". Patient has headache, and feels she cannot keep anything down. She has decreased urine output but denies dysuria or vaginal discharge. Patient states crampy diarrhea. She states she had dry heaves in the waiting room. She has no known drug allergies. PFSH Past Medical History Anemia: Yes Heart Rhythm Problems: Yes ("palpitatons.") Cardiac Catheterization: No Cardiovascular Problems: Yes High Cholesterol: Yes Congestive Heart Failure: No Diabetes: Yes Hypertension: Yes Thyroid Disease: Yes Past Surgical History Section: Yes Coronary Artery Bypass Graft: No Other Surgery: Yes (thyroid) Social History Alcohol Use: Yes (Social) Tobacco Use: No Substance Use: No Allergies-Medications (Allergen,Severity, Reaction): Coded Allergies: No Known Allergies (Verified Adverse Reaction, Unknown, 05/11/17) Reported Meds & Prescriptions Reported Meds & Active Scripts Active Metformin (Metformin HCl) 500 Mg Tab 500 Mg PO BIDPC With meals Reported Virtussin A-C Liq (Guaifenesin-Codeine Liq) 100-10 Mg/5 Ml Soln 10 Ml PO Q6H PRN Azithromycin 250 Mg Tab 250 Mg PO DAILY 6 Days Phenergan (Promethazine HCl) 25 Mg Tablet 25 Mg PO Q6H PRN Review of Systems Except as stated in HPI: all other systems reviewed are Neg General / Constitutional: Positive: Fever (Subjective), Chills Eyes: No: Visual changes HENT: Positive: Headaches, Lightheadedness, Rhinitis, Rhinorrhea, Congestion, No: Vertigo, Sore Throat, Nosebleed, Neck Stiffness, Neck Pain, Dental Difficulties, Earache Cardiovascular: No: Chest Pain or Discomfort Respiratory: Positive: Cough, Night Sweats, No: Shortness of Breath, Wheezing, Sneezing, Orthopnea, Hemoptysis, Pleuritic Pain Gastrointestinal: Positive: Nausea, Vomiting, Diarrhea, Abdominal Pain, Loss of Appetite Genitourinary: No: Urgency, Frequency, Dysuria Musculoskeletal: No: Myalgias, Arthralgias, Limited ROM, Pain Skin: No Rash Neurologic: No: Weakness Psychiatric: No: Depression Endocrine: No: Polydipsia Hematologic/Lymphatic: No: Easy Bruising Physical Exam Narrative GENERAL: Patient appears ill but not septic SKIN: Warm and dry. Decreased pallor. Decreased turgor. HEAD: Atraumatic. Normocephalic. EYES: Pupils equal and round. No scleral icterus. No injection or drainage. ENT: No nasal bleeding or discharge. Mucous membranes pink and dry. Posterior pharynx is unremarkable. Airways patent. TMs are clear. No sinus tenderness to palpation. NECK: Trachea midline. Supple nontender CARDIOVASCULAR: Regular rate and rhythm. No murmurs gallops or rubs appreciated RESPIRATORY: No accessory muscle use. Clear to auscultation. No wheezes, rales , or rhonchi. Breath sounds equal bilaterally. GASTROINTESTINAL: Abdomen soft, mild to moderate nonspecific tenderness, nondistended. No point tenderness or rebound. No CVA tenderness. Hepatic and splenic margins not palpable. MUSCULOSKELETAL: Extremities without clubbing, cyanosis, or edema. No obvious deformities. NEUROLOGICAL: Awake and alert. No obvious cranial nerve deficits. Motor grossly within normal limits. Five out of 5 muscle strength in the arms and legs. Normal speech. PSYCHIATRIC: Appropriate mood and affect; insight and judgment normal. Data Data Last Documented VS Vital Signs Date Time Temp Pulse Resp B/P (MAP) Pulse Ox O2 Delivery O2 Flow Rate FiO2 05/11/17 17:38 98 14 187/93 (124) 100 Room Air 05/11/17 12:40 98.5 Orders Orders Complete Blood Count With Diff (05/11/17 12:42) Comprehensive Metabolic Panel (05/11/17 12:42) Urinalysis - C+S If Indicated (05/11/17 12:42) Ed Urine Pregnancytest Poc (05/11/17 12:42) Iv Access Insert/Monitor (05/11/17 12:42) Oxygen Administration (05/11/17 12:42) Oximetry (05/11/17 12:42) Lipase (05/11/17 12:42) Lactic Acid (05/11/17 14:51) Ct Abd/Pel W Iv Contrast(Rout) (05/11/17 14:51) Ecg Monitoring (05/11/17 14:51) NPO (05/11/17 14:51) Ondansetron Inj (Zofran Inj) (05/11/17 15:00) Sodium Chlor 0.9% 1000 Ml Inj (Ns 1000 M (05/11/17 14:51) Sodium Chloride 0.9% Flush (Ns Flush) (05/11/17 15:00) Electrocardiogram (05/11/17 14:51) Chest, Single Ap (05/11/17 14:51) Famotidine Inj (Pepcid Inj) (05/11/17 15:00) Ckmb (Isoenzyme) Profile (05/11/17 14:51) Troponin I (05/11/17 14:51) Iohexol 350 Inj (Omnipaque 350 Inj) (05/11/17 15:35) CKMB (05/11/17 13:20) CKMB% (05/11/17 13:20) Blood Culture (05/11/17 16:27) Cath For Specimen (05/11/17 16:28) Sodium Chlor 0.9% 1000 Ml Inj (Ns 1000 M (05/11/17 17:30) Lactic Acid (05/11/17 17:22) Labs Laboratory Tests Test 05/11/17 13:00 05/11/17 13:20 05/11/17 14:57 05/11/17 16:10 White Blood Count 4.7 TH/MM3 Red Blood Count 5.09 MIL/MM3 Hemoglobin 10.5 GM/DL Hematocrit 33.3 % Mean Corpuscular Volume 65.4 FL Mean Corpuscular Hemoglobin 20.6 PG Mean Corpuscular Hemoglobin Concent 31.5 % Red Cell Distribution Width 20.5 % Platelet Count 195 TH/MM3 Mean Platelet Volume 9.9 FL Neutrophils (%) (Auto) 59.0 % Lymphocytes (%) (Auto) 30.3 % Monocytes (%) (Auto) 10.3 % Eosinophils (%) (Auto) 0.0 % Basophils (%) (Auto) 0.4 % Neutrophils # (Auto) 2.8 TH/MM3 Lymphocytes # (Auto) 1.4 TH/MM3 Monocytes # (Auto) 0.5 TH/MM3 Eosinophils # (Auto) 0.0 TH/MM3 Basophils # (Auto) 0.0 TH/MM3 CBC Comment DIFF FINAL Differential Comment Blood Urea Nitrogen 17 MG/DL Creatinine 1.37 MG/DL Random Glucose 237 MG/DL Total Protein 9.0 GM/DL Albumin 3.8 GM/DL Calcium Level 9.1 MG/DL Alkaline Phosphatase 87 U/L Aspartate Amino Transf (AST/SGOT) 26 U/L Alanine Aminotransferase (ALT/SGPT) 27 U/L Total Bilirubin 0.4 MG/DL Sodium Level 136 MEQ/L Potassium Level 3.6 MEQ/L Chloride Level 97 MEQ/L Carbon Dioxide Level 28.3 MEQ/L Anion Gap 11 MEQ/L Estimat Glomerular Filtration Rate 50 ML/MIN Lipase 321 U/L Total Creatine Kinase 263 U/L Creatine Kinase MB 1.2 NG/ML Creatine Kinase MB % 0.5 % Troponin I LESS THAN 0.02 NG/ML Lactic Acid Level 2.5 mmol/L Urine Color YELLOW Urine Turbidity CLEAR Urine pH 7.0 Urine Specific Miller 1.046 Urine Protein 300 mg/dL Urine Glucose (UA) TRACE mg/dL Urine Ketones 10 mg/dL Urine Occult Blood SMALL Urine Nitrite NEG Urine Bilirubin NEG Urine Urobilinogen LESS THAN 2.0 MG/DL Urine Leukocyte Esterase NEG Urine RBC 1 /hpf Urine WBC 1 /hpf Urine Squamous Epithelial Cells 2 /hpf Microscopic Urinalysis Comment CULT NOT INDICATED Test 05/11/17 17:45 Lactic Acid Level 1.6 mmol/L [facility] Medical Decision Making Medical Screen Exam Complete: Yes Emergency Medical Condition: Yes Differential Diagnosis Nausea and vomiting. Diarrhea. Abdominal pain. Cardiac syndrome. Pancreatitis. Biliary colic. Renal colic. Colitis. Narrative Course Patient appears medically stable although uncomfortable at time of exam. Labs ordered including CBC, CMP, lactic acid, lipase, urinalysis, and cardiac panel. Chest x-ray is ordered as well as abdominal CT scan with IV contrast. EKG is ordered. IV access is obtained the patient is given 2 L normal saline bolus in addition to 4 mg Zofran IV and 20 mg Pepcid IV. Chest x-ray shows no significant findings per radiologist. CT scan shows no significant changes from previous with a stable fibroid uterus noted per radiologist. CBC shows no significant leukocytosis. Hemoglobin is 10.5, hematocrit 33.3, the patient is noted to have microcytic anemia. This is presumed to be chronic. Chemistries show normal electrolytes, with a creatinine slightly elevated 1.37, GFR 50, random glucose 237. Lactic acid is elevated at 2.5. Total creatinine is 263. Troponin is less than 0.02. Lipase is normal at 321. Urine is concentrated with a specific gravity 1.046, and 300 urine protein. Patient is 10 urine ketones, and small occult blood. No signs of infection are noted. Due to the elevated lactic acid, blood cultures are ordered. She was reassessed at 1730 hrs., and feels improved. Patient is given an additional liter of normal saline IV, and second lactic acid is ordered. Repeat lactic acid is 1.6. Patient is felt stable for discharge. Patient will be sent home with Zofran 4 mg every 6 hours as needed #12 Patient is to rest and push fluids Patient is to have a bland diet and gradually increase intake as tolerated. Patient to finish other meds as previously prescribed Patient to follow-up if symptoms do not improve or worsen as needed Diagnosis Primary Impression: Viral gastroenteritis Additional Impression: Dehydration, moderate Referrals: Primary Care Physician Patient Instructions: Acute Nausea and Vomiting (ED), Dehydration (DC), General Instructions Additional Instructions: Patient is felt stable for discharge. Patient will be sent home with Zofran 4 mg every 6 hours as needed #12 Patient is to rest and push fluids Patient is to have a bland diet and gradually increase intake as tolerated. Patient to finish other meds as previously prescribed Patient to follow-up if symptoms do not improve or worsen as needed Disposition: 01 DISCHARGE HOME Condition: Stable Alejandro Ruiz May 11, 2017 14:36
[2017-05-11] MEDS ORDERED: GUAI1SOL7 PO (14:38)
[2017-05-11] MEDS ORDERED: AZIT250T3 PO (14:38)
[2017-05-11] MEDS ORDERED: PROM25TA10 PO (14:38)
[2017-05-11] MEDS ORDERED: ONDANSETRON HCL 4 MG/2 ML VIAL IVP ONE (15:00)
[2017-05-11] MEDS ORDERED: FAMOTIDINE 20 MG/2 ML VIAL IV PUSH ONE (15:00)
[2017-05-11] MEDS ORDERED: SODIUM CHLORIDE 0.9% FLUSH 10 ML FLUSH IV FLUSH PRN (15:00)
[2017-05-11] MEDS: SODIUM CHLOR 0.9% 1000 ML INJ 1,000 ML IV SCH ×2 (15:05→16:42)
--- NOTE | 2017-05-11 15:15 | RADRPT ---
EXAM DATE/TIME: 05/11/2017 15:02 [facility] COMPARISON: CHEST SINGLE AP, October 22, 2016, 14:00. INDICATIONS : Nausea, vomiting, coughing, chest pain and shortness of breath. MEDICAL HISTORY : Hypercholesterolemia. Hypertension Anemia, AFIB. SURGICAL HISTORY : section. Thyroid surgery. ENCOUNTER: Initial ACUITY: 1 week PAIN SCORE: 3/10 LOCATION: Bilateral chest FINDINGS: A single view of the chest demonstrates the lungs to be symmetrically aerated without evidence of mas s, infiltrate or effusion. The cardiomediastinal contours are unremarkable. Osseous structures are intact. CONCLUSION: Normal examination for a patient of this age. No significant change has occurred. Singh Chan MD on May 11, 2017 at 15:14 Board Certified Radiologist. This report was verified electronically.
[2017-05-11] MEDS ORDERED: IOHEXOL 350 MG/ML 10 ML VIAL (for RAD DIAG) IVCONTRAST ONE (15:35)
--- NOTE | 2017-05-11 15:43 | RADRPT ---
EXAM DATE/TIME: 05/11/2017 15:31 [facility] COMPARISON: CT ABDOMEN & PELVIS W CONTRAST, October 24, 2016, 3:08. INDICATIONS : Patient complains of vomiting for one week. IV CONTRAST: 86 cc Omnipaque 350 (iohexol) IV ORAL CONTRAST: No oral contrast ingested. RADIATION DOSE: 4.5 CTDIvol (mGy) MEDICAL HISTORY : Cardiovascular disease. Hypertension. Diabetes mellitus type 1. SURGICAL HISTORY : None. ENCOUNTER: Initial ACUITY: 1 week PAIN SCALE: 4/10 LOCATION: abdomen TECHNIQUE: Volumetric scanning of the abdomen and pelvis was performed. Using automated exposure control and ad justment of the mA and/or kV according to patient size, radiation dose was kept as low as reasonably achievable to obtain optimal diagnostic quality images. DICOM format image data is available electro nically for review and comparison. FINDINGS: LOWER LUNGS: The visualized lower lungs are clear. LIVER: Homogeneous density without lesion. There is no dilation of the biliary tree. No calcified gallston es. SPLEEN: Normal size without lesion. PANCREAS: Within normal limits. KIDNEYS: Normal in size and shape. There is no mass, stone or hydronephrosis. ADRENAL GLANDS: Within normal limits. VASCULAR: There is no aortic aneurysm. BOWEL/MESENTERY: The stomach, small bowel, and colon demonstrate no acute abnormality. There is no free intraperitone al air or fluid. The appendix is unremarkable. No inflammatory changes are demonstrated. ABDOMINAL WALL: Within normal limits. RETROPERITONEUM: There is no lymphadenopathy. BLADDER: No wall thickening or mass. REPRODUCTIVE: Bulky fibroid uterus. No change compared to 2017. INGUINAL: There is no lymphadenopathy or hernia. MUSCULOSKELETAL: Within normal limits for patient age. CONCLUSION: 1. Stable CT scan of the abdomen and pelvis compared to the prior study. Stable fibroid uterus. 2. No new or significant changes. 3. No acute pathology. Singh Chan MD on May 11, 2017 at 15:39 Board Certified Radiologist. This report was verified electronically.
[2017-05-11 15:49] LABS: TROPONIN I LESS THAN 0.02 NG/ML (0.02-0.05)
[2017-05-11 17:17] LABS: BILIRUBIN, URINE NEG (NEG); BLOOD, URINE SMALL (NEG); GLUCOSE,URINE TRACE mg/dL (NEG); KETONE, URINE 10 mg/dL (NEG); NITRITE,URINE NEG (NEG); SQUAMOUS EPITHELIAL CELL URINE 2 /hpf (0-5); URINE COLOR YELLOW (YELLW/STRAW); URINE LEUKOCYTE ESTERASE NEG (NEG)
[2017-05-11] MEDS ORDERED: SODIUM CHLOR 0.9% 1000 ML INJ 1,000 ML IV ONE (17:30)
[2017-05-11 17:38] VITALS: BP 187/93; PULSE 98; RESP 14; O2SAT 100
[2017-05-11] MEDS ORDERED: ZOFR4TAB PO (18:53)
--- NOTE | 2017-05-11 23:56 | EKG ---
Date Performed: 05/11/2017 Time Performed: 15:14:12 PTAGE: 51 years EKG: Sinus rhythm POSSIBLE LEFT ATRIAL ENLARGEMENT NONSPECIFIC ST & T-WAVE ABNORMALITY BORDERLINE ECG PREVIOUS TRACING : 10/22/2016 23.05 Since the prior tracing, there has been no significant de león DOCTOR: Peter Preciado Interpretating Date/Time 05/11/2017 23:54:27
== END 2017-05-11 20:10 | disposition home or self-care (01) ==
LOC: EDBD 11:58 → NEPD 11:58
DX: A08.4 Viral intestinal infection, unspecified (principal); E86.0 Dehydration; D50.9 Iron deficiency anemia, unspecified; R94.31 Abnormal electrocardiogram [ECG] [EKG]; E78.00 Pure hypercholesterolemia, unspecified; E11.9 Type 2 diabetes mellitus without complications; I10 Essential (primary) hypertension; E07.9 Disorder of thyroid, unspecified
CPT/HCPCS: 71045; 74177; 80053; 81001; 82550; 82552; 83605; 83690; 84484; 84703; 85025; 87040; 93005; 96361; 96374; 96375; 99285; J2405; J7030; Q9967